=== PATIENT | male | born 1990 | race Caucasian/White ===

== ENCOUNTER → 2024-08-25 10:24 | Outpatient (BNVA) | payer OTHER, SELFPAY | PROVIDERS: PCP Nurse Practitioner; Visit Provider Nurse Practitioner | DX: R10.9 Unspecified abdominal pain (principal); R19.5 Other fecal abnormalities | CPT/HCPCS: 85025 ==

== ENCOUNTER 2024-10-12 11:43 | Day surgery (SDC) | payer OTHER, SELFPAY ==
[2024-10-12 12:11] VITALS: BP 121/85; PULSE 78; RESP 18; O2SAT 98; BMI 22.9
[2024-10-12] MEDS: sodium chloride 0.9% 1,000 ML 30 ML IV (12:24)
--- NOTE | 2024-10-12 12:57 | W.PM.OPSUD ---
Surgery/Procedure H&P Update DATE OF PROCEDURE: October 12, 2024 DATE H&P PERFORMED: 09/16/24 H&P UPDATE INFORMATION: I have reviewed H&P completed within last 30 days, I have examined patient prior to procedure and No changes to prior documentation PLANNED PROCEDURE: Operation Date: 10/12/24 12:30 Proposed Procedures p EGD 87760, 26930, G0105, K92.2(Not Applicable) - DO patrick Lauren Colonoscopy(Not Applicable) - Juanito Warren DO
--- NOTE | 2024-10-12 13:16 | ANES.PREANE2 ---
Pre-Anesthetic Assessment Height/Weight: Height 1.78 m Weight 72.575 kg Pulse Resp BP Pulse Ox O2 Del Method 78 18 121/85 98 Room Air 10/12/24 12:11 10/12/24 12:11 10/12/24 12:11 10/12/24 12:11 10/12/24 12:11 Operation Date: 10/12/24 12:30 Proposed Procedures p EGD 13166, 58962, G0105, K92.2(Not Applicable) - DO patrick Lauren Colonoscopy(Not Applicable) - Juanito Warren DO Familial anesthetic complications: none Was Beta True taken within 24 hours: N/A Was Clonidine taken within 24 hours: N/A Last intake: Intake Last Liquid Date 10/11/24 Last Liquid Time 21:00 Last Solid Date 10/10/24 Last Solid Time 17:30 Social Tobacco and No alcohol Exam alert and oriented x 3 Airway Submandibular: within normal limits Cervical ROM: within normal limits Mallampati: Class I Dentition: full (very poor dentition, states none are loose) History/ROS No significant history except as noted Pulmonary None reported CV/HEM None reported None reported Hepatic None reported GI Gastroesophageal Reflux Disease Metabolic None reported Musc/skel None reported Neuropsych Anxiety Anesthetic Plan ASA status: 3 Anesthesia: Anesthesia Evaluation and MAC Medications/Allergies Home Medications Medication Instructions Recorded Confirmed Last Taken Type pantoprazole 40 mg tablet,delayed 40 mg PO BID 6 weeks #84 tabs 09/16/24 10/10/24 10/10/24 Rx release (Protonix) fluoxetine 20 mg tablet 20 mg PO DAILY 10/10/24 10/10/24 10/10/24 History hydroxyzine HCl 10 mg tablet 10 mg PO TID PRN Anxiety 10/10/24 10/10/24 10/10/24 History Allergies Allergy/AdvReac Type Severity Reaction Status Date / Time No Known Allergies Allergy Verified 10/12/24 12:07 Current Medications Generic Name Dose Route Start Last Admin Trade Name Freq PRN Reason Stop Dose Admin Sodium Chloride 1,000 mls @ 30 mls/hr 10/12/24 12:15 10/12/24 12:24 Sodium Chloride 0.9% IV 30 mls/hr .Q24H LENA Administration PFSH Anesthesia Social History Smoking and tobacco/nicotine status: current every day tobacco/nicotine user cigarettes Alcohol intake: never Substance/Drug Use: never Data Anesthesia Cardiac Studies: No Data to Display
[2024-10-12 13:23] VITALS: BP 89/55; PULSE 73; RESP 18; TEMP 36.1; O2SAT 90
--- NOTE | 2024-10-12 13:26 | ANE.PACU2 ---
Inpatient post-anesthesia follow up: Airway intact: Yes Vital signs: Temperature Pulse Rate 78 Respiratory Rate 18 Blood Pressure 121/85 Pulse Oximetry 98 Oxygen Delivery Me thod Room Air Oxygen Flow Rate Fraction of Inspir ed Oxygen Hydration adequate: Yes Nausea and vomiting: No Pain level: 1 Mental status: Baseline
[2024-10-12 13:28] VITALS: BP 95/55; PULSE 68; RESP 18; O2SAT 92
[2024-10-12 13:38] VITALS: BP 119/82; PULSE 75; RESP 18; O2SAT 94
== END 2024-10-12 13:56 | disposition home or self-care (01) ==
PROVIDERS: PCP Nurse Practitioner Family; Visit Provider Surgery
PROC: 0DJ08ZZ Inspection of Upper Intestinal Tract, Via Natural or Artificial Opening Endoscopic (ICD-10-PCS; principal; 2024-10-12 12:30)
PROC: 0DJD8ZZ Inspection of Lower Intestinal Tract, Via Natural or Artificial Opening Endoscopic (ICD-10-PCS; CPT 45378; 2024-10-12 12:30)
DX: K92.1 Melena (principal); R10.13 Epigastric pain; F17.210 Nicotine dependence, cigarettes, uncomplicated; K29.50 Unspecified chronic gastritis without bleeding; K21.00 Gastro-esophageal reflux disease with esophagitis, without bleeding
CPT/HCPCS: 43239; 45378; 88305; 88342; J2704; J3010; J7030

== ENCOUNTER 2024-10-28 10:22 | Outpatient (CLI) | payer OTHER, SELFPAY ==
--- NOTE | 2024-10-28 10:45 | US_ITS ---
WS: [id number] RIGHT UPPER QUADRANT ULTRASOUND HISTORY: epigastric pain COMPARISON: None available. Liver: 17.4 cm in length. Normal size liver and echogenicity. No bile duct dilatation or mass. Portal Vein: Normal hepatopetal flow with monophasic waveform. Gallbladder: Normally distended gallbladder with no stones or wall thickening. CBD: 0.2 cm Pancreas: Completely obscured by bowel gas. Right kidney: 10.0 cm in length. Normal size and echogenicity. No hydronephrosis or mass. Aorta and IVC: Unremarkable abdominal aorta and IVC. No ascites. US/US gall bladder 52894 IMPRESSION: Normal right upper quadrant ultrasound.
== END 2024-10-28 10:23 | disposition home or self-care (01) ==
PROVIDERS: PCP Nurse Practitioner Family; Visit Provider Surgery
DX: R10.13 Epigastric pain (principal)
CPT/HCPCS: 76705

== ENCOUNTER 2024-11-04 06:00 | Outpatient (CLI) | payer OTHER, SELFPAY ==
--- NOTE | 2024-11-04 10:00 | NM_ITS ---
WS: [id number] NUCLEAR MEDICINE HIDA SCAN CLINICAL INFORMATION: epigastric pain TECHNIQUE: Following intravenous administration of 8.6 mCi of technetium 99m mebrofenin, images of the abdomen were obtained over the course of 60 minutes. Next, gallbladder ejection fraction was determined by obtaining preprandial and one-hour postprandial images of the gallbladder following oral ingestion of Ensure. FINDINGS: Hepatomegaly. Gallbladder is visualized by 15 minutes. No evidence of acute cholecystitis. Normal common bile duct and small bowel activity. Normal hepatic uptake and excretion. Normal gallbladder ejection fraction 95% NM/NM hepatobiliary w phar* [id number] IMPRESSION: 1. No evidence of acute or chronic cholecystitis. 2. Gallbladder ejection fraction 95% within normal limits.
== END 2024-11-04 06:01 | disposition home or self-care (01) ==
LOC: RAD 06:00
PROVIDERS: PCP Nurse Practitioner Family; Visit Provider Surgery
DX: R10.13 Epigastric pain (principal); R16.0 Hepatomegaly, not elsewhere classified
CPT/HCPCS: 78227; A9537

== ENCOUNTER 2024-11-22 07:42 | Day surgery (SDC) | payer OTHER, SELFPAY ==
[2024-11-22] VITALS (10 sets, daily range): BP systolic 121–158; BP diastolic 67–91; PULSE 58–100; RESP 14–22; TEMP 36.4–36.9; O2SAT 90–99; BMI 22.9
--- NOTE | 2024-11-22 08:06 | W.PM.OPSUD ---
Surgery/Procedure H&P Update DATE OF PROCEDURE: November 22, 2024 DATE H&P PERFORMED: 11/07/24 H&P UPDATE INFORMATION: I have reviewed H&P completed within last 30 days, I have examined patient prior to procedure and No changes to prior documentation PLANNED PROCEDURE: Operation Date: 11/22/24 09:30 Proposed Procedures p Laparoscopic Cholecystectomy 24296, K82.8(Not Applicable) - Juanito Warren DO
[2024-11-22] MEDS: sodium chloride 0.9% 1,000 ML 30 ML IV (08:27)
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
[2024-11-22] MEDS: ceFAZolin 2,000 mg SDV 2000 MG IVP (09:54)
[2024-11-22] MEDS: lidocaine-epi 2% PF 1:200,000 20 mL SDV 10 ML INJECTION (10:25)
--- NOTE | 2024-11-22 10:35 | P.OP_ITS ---
Operative Report Date of procedure: November 22, 2024 Surgeon: Juanito Warren DO Brief History: This is a very pleasant 33-year-old gentleman who presented my office with abdominal pain. He was found to have biliary dyskinesia. Laparoscopic cholecystectomy was indicated. The risks and benefits were explained and documented. Procedure: Preoperative diagnosis: Biliary dyskinesia Postoperative diagnosis: Same Procedure performed: Laparoscopic cholecystectomy Surgeon: Dr. Juanito Warren DO Estimated blood loss: 5 mL Specimens: Gallbladder to pathology Complications: None apparent Description of procedure: Patient was wheeled into the operative room and placed on the OR table in a supine position. Abdomen was inspected prepped and draped in usual sterile fashion. Time-out was performed and all present were in agreement. A 15 blade scalp was used to make a stab incision in the left upper quadrant and intra- abdominal insufflation was achieved using a Veress needle. After localizing the tissue incisions were made and a 5 millimeter trocar was placed into the umbilicus as well as 2 in the right upper quadrant. A 12 millimeter trocar was placed in the epigastrium. Gallbladder was grasped and elevated. The triangle of Calot was carefully dissected using blunt dissection and electrocautery until the triangle of Calot clearly identified. The cystic duct was clipped proximally and double clipped distally. The duct was then ligated proximally. The cystic artery was doubly clipped and ligated. The gallbladder was then removed from the liver bed using electrocautery. The gallbladder was removed from the abdomen using an Endo-Catch bag through the epigastric incision. The liver bed was inspected and no bleeding was seen. The abdomen was irrigated and suctioned. All ports removed. Skin was washed and dried. Incisions were closed with 4-0 Monocryl in a subcuticular interrupted fashion. Skin glue was applied. Patient tolerated the procedure well.
[2024-11-22] MEDS: scopolamine 1 mg PATCH 1 PATCH TRANSDERMA (11:33)
[2024-11-22] MEDS: HYDROcodone-acetaminophen 7.5-325 mg Tablet 1 TAB PO (12:04)
--- NOTE | 2024-11-22 12:35 | ANE.PACU2 ---
Inpatient post-anesthesia follow up: Airway intact: Yes Vital signs: Temperature 98.1 F Pulse Rate 96 Respiratory Rate 20 Blood Pressure 128/84 Pulse Oximetry 97 Oxygen Delivery Me thod Nasal Cannula Oxygen Flow Rate 2 Fraction of Inspir ed Oxygen Hydration adequate: Yes Nausea and vomiting: No Pain level: 1 Mental status: Baseline
== END 2024-11-22 12:35 | disposition home or self-care (01) ==
PROVIDERS: PCP Nurse Practitioner Family; Visit Provider Surgery
PROC: 0FT44ZZ Resection of Gallbladder, Percutaneous Endoscopic Approach (ICD-10-PCS; CPT 47562; principal; 2024-11-22 09:30)
DX: K81.1 Chronic cholecystitis (principal); K21.9 Gastro-esophageal reflux disease without esophagitis; F17.210 Nicotine dependence, cigarettes, uncomplicated; Z79.899 Other long term (current) drug therapy
CPT/HCPCS: 47562; 88304; A4216; J0131; J0690; J1100; J1171; J2405; J2704; J3010; J3490; J7030